=== PATIENT | female | born 1950 | race Caucasian/White ===

== ENCOUNTER 2017-02-16 01:19 | Emergency (ER) | payer MEDICARE, SELFPAY ==
[~2017-02-16] VITALS: Ht 165.1 cm; Wt 75.0 kg
[2017-02-16] MEDS ORDERED: OXYMETAZOLINE NASAL SPRAY 0.05%, 15ML ONE (01:58)
[2017-02-16] MEDS ORDERED: SODIUM CHLORIDE 0.9% 1,000ML IVBOLUS ONE (02:30)
[2017-02-16 04:44] VITALS: BP 162/85
== END 2017-02-16 04:47 | disposition home or self-care (01) ==
LOC: ED 04:41
DX: R04.0 Epistaxis (principal); R55 Syncope and collapse; I10 Essential (primary) hypertension
CPT/HCPCS: 30901; 36415; 85025; 93005; 96360; 99285; J7030